=== PATIENT | male | born 1940 | race Caucasian/White ===

== ENCOUNTER 2017-08-14 10:36 | Inpatient (IN) | payer MEDICARE ==
[~2017-08-14] VITALS: Ht 175.3 cm; Wt 72.6 kg
[~2017-08-14 10:36] MED LIST: ALBU18HF7 IH; ALPR0.255 PO; ALPR0.5T PO; ASPI-1197 PO; BENZ-39 PO; BUDE10.2 IH; ISOS60TA4 PO; LEVO500T2 PO; MAGN250T10 PO; OMEP20TA2 PO; PRED20TA3 PO; TAMS0.4C32 PO; VIT1CAPS47 PO
[2017-08-14 11:06] LABS: BASOPHILS % (AUTO) 0.6 % (0.0-5.0); EOSINOPHILS % (AUTO) 0.1 % (0.0-8.0); HEMATOCRIT 45.4 % (42-54); LYMPHOCYTES % (AUTO) 3.3 % (21.0-51.0); MEAN CORPUSCULAR HGB CONC 33.2 g/dL (32.0-36.0); MEAN CORPUSCULAR VOLUME 93.4 fL (79-99); MONOCYTES % (AUTO) 3.2 % (3.0-13.0); NEUTROPHILS % (AUTO) 92.8 % (40.0-77.0); PLATELET COUNT (AUTO) 321 K/uL (130-400); RED BLOOD CELL COUNT(AUTO) 4.85 MIL/uL (4.50-6.20); RED CELL DISTRIBUTION WIDTH 13.1 % (11.0-15.5)
[2017-08-14 11:19] LABS: CARBON DIOXIDE 29 mmol/L (21-32); CHLORIDE 100 mmol/L (101-111); CREATININE 1.3 mg/dL (0.5-1.5); GLOMERULAR FILTR. RATE CALC 57 mL/min (>60); GLUCOSE,RANDOM 120 mg/dL (70-105); POTASSIUM 4.1 mmol/L (3.5-5.1); SODIUM SERUM 136 mmol/L (136-145); UREA NITROGEN, BLOOD 21 mg/dL (7-18)
[2017-08-14 11:30] LABS: ALANINE AMINOTRANSFERASE 11 U/L (12-78); ALBUMIN 3.6 g/dL (3.5-5.0); ASPARTATE AMINOTRANSFERASE 12 U/L (10-37); BILIRUBIN,TOTAL 1.2 mg/dL (0.2-1.0); CREATINE KINASE MB < 0.5 ng/mL (0.5-3.6); CREATINE KINASE, TOTAL 48 U/L (21-232); TOTAL PROTEIN, SERUM 7.5 g/dL (6.0-8.3)
[2017-08-14 11:44] LABS: B-TYPE NATRIURETIC PEPTIDE 145 pg/mL (0-100)
[2017-08-14 11:50] LABS: INR 1.07 (0.85-1.15); PARTIAL THROMBOPLASTIN TIME 30.6 SEC (26.3-35.5); PROTHROMBIN TIME 11.2 SEC (9.6-11.6)
[2017-08-14] MEDS ORDERED: CEFTRIAXONE SODIUM 1 GM ONE (11:55)
[2017-08-14] MEDS ORDERED: SODIUM CHLORIDE 0.9% 50 ML IV ONE (11:55)
[2017-08-14] MEDS ORDERED: LEVOFLOXACIN 500 MG/D5W 100 ML 0 ML ONE (13:02)
[2017-08-14] MEDS ORDERED: LEVOFLOXACIN 500 MG TABLET ONE (13:03)
[2017-08-14 18:41] VITALS: BP 113/59
[2017-08-14 19:00] VITALS: BP 112/65
[2017-08-14] MEDS: SODIUM CHLORIDE 0.9% 1000ML 1,000 ML IV SCH (19:15)
[2017-08-14] MEDS ORDERED: ACETAMINOPHEN 325 MG TAB PO PRN ×2 (19:15→22:00)
[2017-08-14] MEDS ORDERED: TIOT18CA3 IH (19:47)
[2017-08-14] MEDS ORDERED: BUDE10.2 IH (19:47)
[2017-08-14] MEDS ORDERED: ONDANSETRON HCL 4 MG/2 ML VIAL IV PRN (22:00)
[2017-08-14] MEDS ORDERED: METHYLPREDNISOLONE SOD SUCC 125MG/2ML VIAL IV SCH (22:00)
[2017-08-14] MEDS ORDERED: HYDRALAZINE HCL 20 MG/ML VIAL IV PRN (22:00)
[2017-08-14] MEDS ORDERED: IPRATROPIUM/ALBUTEROL SULFATE 3 ML SOLUTION IH SCH (22:00)
[2017-08-14] MEDS: ACETAMINOPHEN-CODEINE 300/30MG TAB PO PRN (23:53)
[2017-08-14] MEDS: AZITHROMYCIN 500MG+NS 250ML 250 ML IV SCH (23:53)
[2017-08-15] VITALS (8 sets, daily range): BP systolic 97–137; BP diastolic 60–72
[2017-08-15] MEDS: IPRATROPIUM 0.5 MG/2.5 ML INH IH SCH ×3 (01:48→10:00)
[2017-08-15 04:38] LABS: BASOPHILS % (AUTO) 0.1 % (0.0-5.0); EOSINOPHILS % (AUTO) 0.1 % (0.0-8.0); MEAN CORPUSCULAR HEMOGLOBIN 31.8 pg (27.0-33.0); MEAN CORPUSCULAR HGB CONC 33.9 g/dL (32.0-36.0); MEAN CORPUSCULAR VOLUME 93.7 fL (79-99); MONOCYTES % (AUTO) 1.2 % (3.0-13.0); NEUTROPHILS % (AUTO) 94.6 % (40.0-77.0); PLATELET COUNT (AUTO) 260 K/uL (130-400); RED BLOOD CELL COUNT(AUTO) 4.27 MIL/uL (4.50-6.20); RED CELL DISTRIBUTION WIDTH 13.6 % (11.0-15.5); WHITE BLOOD COUNT (AUTO) 13.8 K/uL (4.8-10.8)
[2017-08-15 04:41] LABS: CREATININE 1.3 mg/dL (0.5-1.5); POTASSIUM 4.3 mmol/L (3.5-5.1)
[2017-08-15] MEDS: SODIUM CHLORIDE 0.9% 1000ML 1,000 ML IV SCH (05:04)
[2017-08-15] MEDS ORDERED: LEVOFLOXACIN 500 MG/D5W 100 ML 100 ML IV SCH (09:00)
[2017-08-15] MEDS ORDERED: CEFTRIAXONE 1GM/D5W 50ML 50 ML IV SCH (09:00)
[2017-08-15] MEDS ORDERED: SUB TO ALBUTEROL 2.5MG/3ML NEBULES PER P&T IH SCH (09:30)
[2017-08-15] MEDS: PANTOPRAZOLE SODIUM 40 MG TABLET.DR PO SCH (10:16)
[2017-08-15] MEDS: BENZONATATE 100 MG CAPSULE PO SCH ×3 (10:16→20:55)
[2017-08-15] MEDS: ENOXAPARIN SODIUM 40 MG/0.4 ML SYRINGE SQ SCH (10:18)
[2017-08-15] MEDS ORDERED: IPRATROPIUM 0.5 MG/2.5 ML INH IH SCH (12:00)
[2017-08-15] MEDS: METHYLPREDNISOLONE SOD SUCC 40MG/ML 1ML IVP SCH ×2 (14:21→22:42)
[2017-08-15] MEDS ORDERED: DIGOXIN 250 MCG TABLET PO SCH (14:30)
[2017-08-15] MEDS: IPRATROPIUM/ALBUTEROL SULFATE 3 ML SOLUTION IH SCH (19:22)
[2017-08-15] MEDS: APIXABAN 5 MG TABLET PO SCH (20:55)
[2017-08-15] MEDS: CEFTRIAXONE SODIUM 1 GM IVP SCH (20:55)
[2017-08-15] MEDS: AZITHROMYCIN 500MG+NS 250ML 250 ML IV SCH (22:42)
[2017-08-16] MEDS: IPRATROPIUM/ALBUTEROL SULFATE 3 ML SOLUTION IH SCH ×5 (00:07→23:51)
[2017-08-16 04:00] VITALS: BP 134/77
[2017-08-16] MEDS: ACETAMINOPHEN-CODEINE 300/30MG TAB PO PRN ×2 (05:00→23:23)
[2017-08-16] MEDS: METHYLPREDNISOLONE SOD SUCC 40MG/ML 1ML IVP SCH ×3 (05:47→21:52)
[2017-08-16 08:08] VITALS: BP 143/77
[2017-08-16] MEDS: APIXABAN 5 MG TABLET PO SCH ×2 (08:13→20:01)
[2017-08-16] MEDS: ENOXAPARIN SODIUM 40 MG/0.4 ML SYRINGE SQ SCH (08:13)
[2017-08-16] MEDS: PANTOPRAZOLE SODIUM 40 MG TABLET.DR PO SCH (08:13)
[2017-08-16] MEDS: BENZONATATE 100 MG CAPSULE PO SCH ×3 (08:14→20:01)
[2017-08-16] MEDS: CEFTRIAXONE SODIUM 1 GM IVP SCH ×2 (08:15→20:00)
[2017-08-16] MEDS ORDERED: LACTULOSE 20 GM/30 ML UDCUP PO PRN (08:45)
[2017-08-16 11:21] VITALS: BP 142/78
[2017-08-16] MEDS ORDERED: DIGOXIN 125 MCG TABLET PO SCH (16:00)
[2017-08-16 16:08] VITALS: BP 140/78
[2017-08-16] MEDS ORDERED: BISACODYL 5 MG TABLET.DR PO PRN (18:00)
[2017-08-16 20:00] VITALS: BP 137/76
[2017-08-16] MEDS: AZITHROMYCIN 500MG+NS 250ML 250 ML IV SCH (21:52)
[2017-08-17] VITALS: BP 148/77
[2017-08-17 04:00] VITALS: BP 131/74
[2017-08-17 05:39] LABS: HEMATOCRIT 36.7 % (42-54); MEAN CORPUSCULAR HEMOGLOBIN 31.1 pg (27.0-33.0); MEAN CORPUSCULAR HGB CONC 33.4 g/dL (32.0-36.0); MEAN CORPUSCULAR VOLUME 93.1 fL (79-99); PLATELET COUNT (AUTO) 323 K/uL (130-400); RED BLOOD CELL COUNT(AUTO) 3.94 MIL/uL (4.50-6.20); WHITE BLOOD COUNT (AUTO) 11.2 K/uL (4.8-10.8)
[2017-08-17 05:53] LABS: POTASSIUM 3.9 mmol/L (3.5-5.1)
[2017-08-17] MEDS: METHYLPREDNISOLONE SOD SUCC 40MG/ML 1ML IVP SCH ×2 (05:58→14:55)
[2017-08-17 07:00] VITALS: BP 145/79
[2017-08-17] MEDS: IPRATROPIUM/ALBUTEROL SULFATE 3 ML SOLUTION IH SCH ×2 (07:12→11:23)
[2017-08-17] MEDS: BENZONATATE 100 MG CAPSULE PO SCH ×2 (09:14→14:55)
[2017-08-17] MEDS: CEFTRIAXONE SODIUM 1 GM IVP SCH (09:14)
[2017-08-17] MEDS: APIXABAN 5 MG TABLET PO SCH (09:15)
[2017-08-17] MEDS: PANTOPRAZOLE SODIUM 40 MG TABLET.DR PO SCH (09:15)
[2017-08-17 11:00] VITALS: BP 144/84
== END 2017-08-17 16:40 | disposition home or self-care (01) | DRG 871 ==
LOC: EDH 10:36 → EDHIP 12:14 → 3DH 18:04
PROVIDERS: ADMIT Family Medicine; ATTEND Family Medicine
DX: A41.9 Sepsis, unspecified organism (principal); J18.9 Pneumonia, unspecified organism; J44.0 Chronic obstructive pulmonary disease with (acute) lower respiratory infection; J44.1 Chronic obstructive pulmonary disease with (acute) exacerbation; I48.0 Paroxysmal atrial fibrillation; F41.9 Anxiety disorder, unspecified; N40.0 Benign prostatic hyperplasia without lower urinary tract symptoms; K21.9 Gastro-esophageal reflux disease without esophagitis; M51.9 Unspecified thoracic, thoracolumbar and lumbosacral intervertebral disc disorder; I73.9 Peripheral vascular disease, unspecified; F17.200 Nicotine dependence, unspecified, uncomplicated; Z96.643 Presence of artificial hip joint, bilateral
CPT/HCPCS: 36415; 71045; 71046; 80048; 80053; 82550; 82553; 83605; 83880; 84484; 85025; 85027; 85610; 85730; 87040; 87804; 93005; 94640; 94664; 99291; A4218; J0456; J0696; J1650; J1956; J2920; J2930; J7030

== ENCOUNTER 2018-07-17 07:00 | Emergency (ER) | payer MEDICARE ==
[~2018-07-17 07:00] MED LIST changes: -ALPR0.255 PO; -ASPI-1197 PO; -LEVO500T2 PO; -MAGN250T10 PO; -PRED20TA3 PO; +TIOT18CA3 IH; -VIT1CAPS47 PO
[2018-07-17 08:19] LABS: BASOPHILS % (AUTO) 0.7 % (0.0-5.0); HEMATOCRIT 41.7 % (42-54); LYMPHOCYTES % (AUTO) 22.1 % (21.0-51.0); MEAN CORPUSCULAR HEMOGLOBIN 32.6 pg (27.0-33.0); MEAN CORPUSCULAR HGB CONC 33.8 g/dL (32.0-36.0); MEAN CORPUSCULAR VOLUME 96.3 fL (79-99); NEUTROPHILS % (AUTO) 69.2 % (40.0-77.0); PLATELET COUNT (AUTO) 338 K/uL (130-400); RED BLOOD CELL COUNT(AUTO) 4.33 MIL/uL (4.50-6.20); RED CELL DISTRIBUTION WIDTH 13.6 % (11.0-15.5); WHITE BLOOD COUNT (AUTO) 11.2 K/uL (4.8-10.8)
[2018-07-17 08:23] LABS: CARBON DIOXIDE 28 mmol/L (21-32); CHLORIDE 102 mmol/L (101-111); CREATININE 1.1 mg/dL (0.5-1.5); GLOMERULAR FILTR. RATE CALC 69 mL/min (>60); GLUCOSE,RANDOM 88 mg/dL (70-105); POTASSIUM 4.1 mmol/L (3.5-5.1); SODIUM SERUM 138 mmol/L (136-145); UREA NITROGEN, BLOOD 21 mg/dL (7-18)
[2018-07-17 08:36] LABS: INR 1.01 (0.85-1.15); PARTIAL THROMBOPLASTIN TIME 26.8 SEC (26.3-35.5); PROTHROMBIN TIME 10.6 SEC (9.6-11.6)
[2018-07-17 08:36] LABS: ALANINE AMINOTRANSFERASE 26 U/L (12-78); ALBUMIN 3.3 g/dL (3.5-5.0); ASPARTATE AMINOTRANSFERASE 20 U/L (10-37); BILIRUBIN,TOTAL 0.4 mg/dL (0.2-1.0); CREATINE KINASE, TOTAL 55 U/L (21-232); MYOGLOBIN 54 ng/mL (10-92); TOTAL PROTEIN, SERUM 6.4 g/dL (6.0-8.3); TROPONIN I < 0.04 ng/mL (0.00-0.06)
== END 2018-07-17 09:28 | disposition home or self-care (01) ==
LOC: EDH 07:00
DX: J20.9 Acute bronchitis, unspecified (principal); F41.9 Anxiety disorder, unspecified; J44.9 Chronic obstructive pulmonary disease, unspecified; Z72.0 Tobacco use
CPT/HCPCS: 36415; 71250; 80053; 82550; 83605; 83874; 84484; 85025; 85610; 85730; 87040; 93005

== ENCOUNTER 2018-09-20 16:06 | Emergency (ER) | payer MEDICARE ==
[2018-09-20 16:26] LABS: BASOPHILS % (AUTO) 1.1 % (0.0-5.0); EOSINOPHILS % (AUTO) 3.6 % (0.0-8.0); HEMATOCRIT 42.7 % (42-54); LYMPHOCYTES % (AUTO) 17.7 % (21.0-51.0); MEAN CORPUSCULAR HEMOGLOBIN 31.1 pg (27.0-33.0); MEAN CORPUSCULAR HGB CONC 33.1 g/dL (32.0-36.0); MONOCYTES % (AUTO) 8.8 % (3.0-13.0); NEUTROPHILS % (AUTO) 68.8 % (40.0-77.0); NUCLEATED RED BLOOD CELLS 0.1 % (0.0-0.19); PLATELET COUNT (AUTO) 344 K/uL (130-400); RED BLOOD CELL COUNT(AUTO) 4.55 MIL/uL (4.50-6.20); RED CELL DISTRIBUTION WIDTH 13.4 % (11.0-15.5); WHITE BLOOD COUNT (AUTO) 7.2 K/uL (4.8-10.8)
[2018-09-20] MEDS ORDERED: ONDANSETRON HCL 4 MG/2 ML VIAL ONE (16:31)
[2018-09-20 16:38] LABS: INR 1.01 (0.85-1.15); PARTIAL THROMBOPLASTIN TIME 30.8 SEC (26.3-35.5); PROTHROMBIN TIME 10.6 SEC (9.6-11.6)
[2018-09-20 16:41] LABS: ALBUMIN 3.3 g/dL (3.5-5.0); BILIRUBIN,TOTAL 0.5 mg/dL (0.2-1.0); POTASSIUM 3.9 mmol/L (3.5-5.1); TOTAL PROTEIN, SERUM 6.3 g/dL (6.0-8.3)
== END 2018-09-20 20:30 | disposition home or self-care (01) ==
LOC: EDH 16:06
DX: K80.50 Calculus of bile duct without cholangitis or cholecystitis without obstruction (principal); K80.20 Calculus of gallbladder without cholecystitis without obstruction; J44.9 Chronic obstructive pulmonary disease, unspecified; Z72.0 Tobacco use
CPT/HCPCS: 36415; 71045; 76705; 80053; 83690; 84484 ×2; 85025; 85610; 85730; 93005; 96374; 99284; J2405

== ENCOUNTER 2021-08-21 00:53 | Observation (INO) | payer MEDICARE ==
[~2021-08-21] VITALS: Ht 172.7 cm; Wt 65.8 kg
[~2021-08-21 00:53] MED LIST changes: -ISOS60TA4 PO; +ISOS60TA77 PO
[2021-08-21] MEDS ORDERED: ONDANSETRON 4MG INJ ONE (01:54)
[2021-08-21] MEDS ORDERED: MORPHINE 4 MG SYG ONE (01:54)
[2021-08-21 01:58] LABS: BASOPHILS % (AUTO) 0.5 % (0.0-5.0); EOSINOPHILS % (AUTO) 0.7 % (0.0-8.0); HEMATOCRIT 41.5 % (42-54); LYMPHOCYTES % (AUTO) 10.3 % (21.0-51.0); MEAN CORPUSCULAR HEMOGLOBIN 29.4 pg (27.0-33.0); MEAN CORPUSCULAR HGB CONC 32.5 g/dL (32.0-36.0); MEAN CORPUSCULAR VOLUME 90.4 fL (79-99); MONOCYTES % (AUTO) 6.7 % (3.0-13.0); NEUTROPHILS % (AUTO) 81.4 % (40.0-77.0); PLATELET COUNT (AUTO) 283 K/uL (130-400); RED BLOOD CELL COUNT(AUTO) 4.59 MIL/uL (4.50-6.20); RED CELL DISTRIBUTION WIDTH 14.2 % (11.0-15.5); WHITE BLOOD COUNT (AUTO) 10.8 K/uL (4.8-10.8)
[2021-08-21] MEDS ORDERED: MORPHINE 4 MG SYG IV ONE (02:00)
[2021-08-21] MEDS ORDERED: ONDANSETRON 4MG INJ IVP ONE (02:00)
[2021-08-21 02:07] LABS: CREATININE 1.2 mg/dL (0.5-1.5); POTASSIUM 4.6 mmol/L (3.5-5.1)
[2021-08-21 02:12] LABS: ALBUMIN 3.9 g/dL (3.5-5.0); BILIRUBIN,TOTAL 0.4 mg/dL (0.2-1.0); TOTAL PROTEIN, SERUM 7.5 g/dL (6.0-8.3)
[2021-08-21] MEDS ORDERED: MORPHINE 2 MG SYG ONE (06:26)
[2021-08-21] MEDS ORDERED: MORPHINE 2 MG SYG IVP ONE (06:30)
[2021-08-21] MEDS ORDERED: ACETAMINOPHEN 325 MG TAB PO PRN ×2 (07:00)
[2021-08-21] MEDS ORDERED: ONDANSETRON 4MG INJ IV PRN (07:00)
[2021-08-21] MEDS ORDERED: HYDRALAZINE 20MG/ML VIAL IV PRN (07:00)
[2021-08-21 07:11] LABS: APPEARANCE,URINE Clear (CLEAR); BILIRUBIN,URINE Negative (NEGATIVE); COLOR,URINE Yellow (YELLOW); GLUCOSE, URINE (UA) Negative (NEGATIVE); KETONES,URINE 15 mg/dL (NEGATIVE); LEUKOCYTE ESTERASE ,URINE Moderate (NEGATIVE); NITRATE,URINE Positive (NEGATIVE); OCCULT BLOOD,URINE Large (NEGATIVE); PROTEIN,URINE Trace mg/dL (NEGATIVE); UROBILINOGEN,URINE 0.2 mg/dL (0.2-1.0)
[2021-08-21 07:17] LABS: AMPHET/METH SCREEN,URINE NEGATIVE (NEGATIVE); BARBITURATE SCREEN, URINE NEGATIVE (NEGATIVE); BENZODIAZEPINES SCREEN,URINE POSITIVE (NEGATIVE); CANNABINOID SCREEN,URINE NEGATIVE (NEGATIVE); COCAINE SCREEN,URINE NEGATIVE (NEGATIVE); OPIATE SCREEN,URINE POSITIVE (NEGATIVE); PHENCYCLIDINE SCREEN,URINE NEGATIVE (NEGATIVE)
[2021-08-21 07:36] LABS: SQUAMOUS EPITHELIAL CELL,UR Rare /HPF (0-2)
[2021-08-21 07:38] LABS: RBC,URINE 51-100 /HPF (0-1)
[2021-08-21 07:39] LABS: BACTERIA,URINE Moderate /HPF (None Seen)
[2021-08-21 07:40] LABS: INR 0.97 (0.85-1.15); PROTHROMBIN TIME 10.6 SEC (9.6-11.6)
[2021-08-21 07:42] LABS: PARTIAL THROMBOPLASTIN TIME 29.4 SEC (26.3-35.5)
[2021-08-21] MEDS: TRAMADOL HCL 50 MG TABLET PO PRN ×3 (08:19→10:58)
[2021-08-21] MEDS: FAMOTIDINE 20MG VIAL IV SCH ×2 (09:22→10:59)
[2021-08-21] MEDS: CEFTRIAXONE 1G VIAL IVP SCH (13:18)
[2021-08-21] MEDS: KETOROLAC 15MG/ML VIAL (15MG/ML) IV PRN (16:08)
[2021-08-21] MEDS ORDERED: ALPRAZOLAM 0.25 MG TABLET ONE (17:57)
[2021-08-21] MEDS ORDERED: IPRATROPIUM/ALBUTEROL SULFATE 3 ML SOLUTION IH SCH (18:00)
[2021-08-21] MEDS: BUDESONIDE 0.5 MG/2 ML INH IH SCH (18:00)
[2021-08-21] MEDS: ALPRAZOLAM 0.5 MG TABLET PO PRN (18:01)
[2021-08-21] MEDS: IPRATROPIUM/ALBUTEROL SULFATE 3 ML SOLUTION IH SCH (19:18)
[2021-08-22] MEDS: IPRATROPIUM/ALBUTEROL SULFATE 3 ML SOLUTION IH SCH ×5 (00:37→23:59)
[2021-08-22] MEDS: TRAMADOL HCL 50 MG TABLET PO PRN ×3 (04:41→18:11)
[2021-08-22] MEDS: BUDESONIDE 0.5 MG/2 ML INH IH SCH ×2 (06:21→19:16)
[2021-08-22 07:02] LABS: HEMATOCRIT 41.6 % (42-54); MEAN CORPUSCULAR HEMOGLOBIN 29.7 pg (27.0-33.0); MEAN CORPUSCULAR HGB CONC 32.2 g/dL (32.0-36.0); MEAN CORPUSCULAR VOLUME 92.2 fL (79-99); RED BLOOD CELL COUNT(AUTO) 4.51 MIL/uL (4.50-6.20); RED CELL DISTRIBUTION WIDTH 14.7 % (11.0-15.5); WHITE BLOOD COUNT (AUTO) 8.6 K/uL (4.8-10.8)
[2021-08-22 07:22] LABS: CREATININE 1.1 mg/dL (0.5-1.5); POTASSIUM 4.7 mmol/L (3.5-5.1)
[2021-08-22] MEDS: PANTOPRAZOLE 40 MG TAB DR PO SCH (08:39)
[2021-08-22] MEDS ORDERED: POLYETHYLENE GLYCOL 3350 17 GM POWD.PACK PO ONE (12:30)
[2021-08-22] MEDS: CEFTRIAXONE 1G VIAL IVP SCH (13:14)
[2021-08-22] MEDS: TAMSULOSIN HCL 0.4 MG CAP.ER.24H PO SCH (13:14)
[2021-08-22] MEDS ORDERED: salbutamol IH (14:38)
[2021-08-22 14:57] VITALS: BP 137/70
[2021-08-22 20:00] VITALS: BP 111/66
[2021-08-23] VITALS (10 sets, daily range): BP systolic 116–149; BP diastolic 61–78
[2021-08-23] MEDS: ALPRAZOLAM 0.5 MG TABLET PO PRN ×2 (00:02→14:17)
[2021-08-23] MEDS: KETOROLAC 15MG/ML VIAL (15MG/ML) IV PRN (00:03)
[2021-08-23] MEDS ORDERED: POLYETHYLENE GLYCOL 3350 17 GM POWD.PACK ONE (05:25)
[2021-08-23] MEDS: POLYETHYLENE GLYCOL 3350 17 GM POWD.PACK PO SCH ×2 (05:29→09:50)
[2021-08-23 05:34] LABS: BASOPHILS % (AUTO) 0.6 % (0.0-5.0); EOSINOPHILS % (AUTO) 3.5 % (0.0-8.0); HEMATOCRIT 36.3 % (42-54); LYMPHOCYTES % (AUTO) 20.7 % (21.0-51.0); MEAN CORPUSCULAR HGB CONC 31.7 g/dL (32.0-36.0); MEAN CORPUSCULAR VOLUME 91.4 fL (79-99); MONOCYTES % (AUTO) 12.9 % (3.0-13.0); PLATELET COUNT (AUTO) 248 K/uL (130-400); RED BLOOD CELL COUNT(AUTO) 3.97 MIL/uL (4.50-6.20); RED CELL DISTRIBUTION WIDTH 14.4 % (11.0-15.5); WHITE BLOOD COUNT (AUTO) 7.2 K/uL (4.8-10.8)
[2021-08-23 05:59] LABS: ALBUMIN 3.3 g/dL (3.5-5.0); BILIRUBIN,TOTAL 0.6 mg/dL (0.2-1.0); CREATININE 1.3 mg/dL (0.5-1.5); POTASSIUM 3.9 mmol/L (3.5-5.1); TOTAL PROTEIN, SERUM 6.8 g/dL (6.0-8.3)
[2021-08-23] MEDS: IPRATROPIUM/ALBUTEROL SULFATE 3 ML SOLUTION IH SCH ×4 (07:02→23:23)
[2021-08-23] MEDS: BUDESONIDE 0.5 MG/2 ML INH IH SCH ×2 (07:02→18:09)
[2021-08-23] MEDS: PANTOPRAZOLE 40 MG TAB DR PO SCH (09:50)
[2021-08-23] MEDS: TAMSULOSIN HCL 0.4 MG CAP.ER.24H PO SCH (12:47)
[2021-08-23] MEDS: LACTULOSE 20 GM/30 ML UDCUP PO PRN ×2 (12:47→19:41)
[2021-08-23] MEDS: CEFTRIAXONE 1G VIAL IVP SCH (12:47)
[2021-08-23] MEDS: MORPHINE 2 MG SYG IVP PRN ×2 (12:54→19:38)
[2021-08-23] MEDS ORDERED: MORPHINE 2 MG SYG IVP SCH (14:00)
[2021-08-24] VITALS: BP 134/68
[2021-08-24] MEDS: MORPHINE 2 MG SYG IVP PRN ×3 (00:15→09:24)
[2021-08-24] MEDS: TRAMADOL HCL 50 MG TABLET PO PRN (02:50)
[2021-08-24 03:42] LABS: BASOPHILS % (AUTO) 0.7 % (0.0-5.0); EOSINOPHILS % (AUTO) 4.4 % (0.0-8.0); HEMATOCRIT 40.3 % (42-54); LYMPHOCYTES % (AUTO) 15.4 % (21.0-51.0); MEAN CORPUSCULAR HEMOGLOBIN 29.4 pg (27.0-33.0); MEAN CORPUSCULAR HGB CONC 31.8 g/dL (32.0-36.0); MEAN CORPUSCULAR VOLUME 92.6 fL (79-99); MONOCYTES % (AUTO) 9.5 % (3.0-13.0); NEUTROPHILS % (AUTO) 69.6 % (40.0-77.0); PLATELET COUNT (AUTO) 307 K/uL (130-400); RED BLOOD CELL COUNT(AUTO) 4.35 MIL/uL (4.50-6.20); RED CELL DISTRIBUTION WIDTH 14.5 % (11.0-15.5); WHITE BLOOD COUNT (AUTO) 8.1 K/uL (4.8-10.8)
[2021-08-24 03:51] LABS: CREATININE 1.1 mg/dL (0.5-1.5); POTASSIUM 4.8 mmol/L (3.5-5.1)
[2021-08-24 04:00] VITALS: BP 126/79
[2021-08-24] MEDS: BUDESONIDE 0.5 MG/2 ML INH IH SCH (06:00)
[2021-08-24] MEDS: IPRATROPIUM/ALBUTEROL SULFATE 3 ML SOLUTION IH SCH ×2 (07:17→11:03)
[2021-08-24 08:32] VITALS: BP 114/73
[2021-08-24] MEDS: POLYETHYLENE GLYCOL 3350 17 GM POWD.PACK PO SCH (09:28)
[2021-08-24] MEDS: PANTOPRAZOLE 40 MG TAB DR PO SCH (09:28)
[2021-08-24] MEDS ORDERED: MEROPENEM 500 MG VIAL IVP SCH ×2 (09:30→17:00)
[2021-08-24] MEDS ORDERED: SULF1TAB42 PO (09:33)
[2021-08-24] MEDS ORDERED: ACET1TAB25 PO (09:34)
[2021-08-24 11:46] VITALS: BP 106/71
== END 2021-08-24 12:30 | disposition home or self-care (01) ==
LOC: EDH 00:53 → EDHIP 06:42 → 4AH 08-22 14:28
PROVIDERS: ADMIT Internal Medicine; ATTEND Internal Medicine
DX: R55 Syncope and collapse (principal); Z20.822 Contact with and (suspected) exposure to COVID-19; R07.89 Other chest pain; J44.9 Chronic obstructive pulmonary disease, unspecified; N39.0 Urinary tract infection, site not specified; B96.20 Unspecified Escherichia coli [E. coli] as the cause of diseases classified elsewhere; K59.00 Constipation, unspecified; F17.210 Nicotine dependence, cigarettes, uncomplicated; Z86.16 Personal history of COVID-19; Z90.49 Acquired absence of other specified parts of digestive tract; Z79.899 Other long term (current) drug therapy; Z98.890 Other specified postprocedural states; W22.8XXA Striking against or struck by other objects, initial encounter; Y93.89 Activity, other specified; Y92.89 Other specified places as the place of occurrence of the external cause; Y99.8 Other external cause status
CPT/HCPCS: 36415; 70450; 71100; 71250; 74176; 80048; 80053; 80305; 81001; 83880; 84484; 85025; 85027; 85378; 85610; 85730; 87077; 87088; 87186; 87635; 93005; 93306; 93880; 93970; 94640; 94664; 96374; 96375; 96376; 97039; C9803; G0378; J0696; J1885; J2185; J2270; J2405; J3490

== ENCOUNTER 2021-08-31 06:06 | Inpatient (IN) | payer MEDICARE ==
[~2021-08-31] VITALS: Ht 172.7 cm; Wt 67.5 kg
[2021-08-31] VITALS (17 sets, daily range): BP systolic 98–138; BP diastolic 51–74
[~2021-08-31 06:06] MED LIST changes: -ALBU18HF7 IH; -BENZ-39 PO; -ISOS60TA77 PO; +SULF1TAB42 PO; +salbutamol IH
[2021-08-31 06:48] LABS: BASOPHILS % (AUTO) 0.7 % (0.0-5.0); EOSINOPHILS % (AUTO) 0.5 % (0.0-8.0); HEMATOCRIT 38.6 % (42-54); LYMPHOCYTES % (AUTO) 9.8 % (21.0-51.0); MEAN CORPUSCULAR HGB CONC 31.9 g/dL (32.0-36.0); MONOCYTES % (AUTO) 8.7 % (3.0-13.0); NEUTROPHILS % (AUTO) 79.8 % (40.0-77.0); PLATELET COUNT (AUTO) 325 K/uL (130-400); RED BLOOD CELL COUNT(AUTO) 4.24 MIL/uL (4.50-6.20); RED CELL DISTRIBUTION WIDTH 13.8 % (11.0-15.5); WHITE BLOOD COUNT (AUTO) 8.7 K/uL (4.8-10.8)
[2021-08-31] MEDS ORDERED: ACETAMINOPHEN 325 MG TAB PO ONE (07:00)
[2021-08-31 07:05] LABS: ALBUMIN 3.6 g/dL (3.5-5.0); BILIRUBIN,TOTAL 0.4 mg/dL (0.2-1.0); CREATININE 1.5 mg/dL (0.5-1.5); POTASSIUM 4.1 mmol/L (3.5-5.1); TOTAL PROTEIN, SERUM 7.3 g/dL (6.0-8.3)
[2021-08-31] MEDS ORDERED: 0.9% NACL 500ML IV.SOLN 500 ML IV ONE (07:30)
[2021-08-31] MEDS ORDERED: ONDANSETRON 4MG INJ IVP ONE (07:30)
[2021-08-31] MEDS ORDERED: MORPHINE 2 MG SYG IVP ONE (07:30)
[2021-08-31] MEDS ORDERED: IOHEXOL 350 MG/ML 100ML INFUS..BTL IV ONE (07:59)
[2021-08-31] MEDS ORDERED: IOHEXOL-350 50ML VIAL IV ONE (07:59)
[2021-08-31] MEDS ORDERED: MORPHINE 2 MG SYG IVP PRN (10:00)
[2021-08-31] MEDS: CEFTRIAXONE 1G VIAL IVP SCH (10:36)
[2021-08-31] MEDS: ALPRAZOLAM 1 MG TAB PO SCH (11:36)
[2021-08-31] MEDS: MORPHINE 2 MG SYG IVP PRN (13:22)
[2021-08-31] MEDS: IPRATROPIUM/ALBUTEROL SULFATE 3 ML SOLUTION IH PRN ×2 (13:48→23:01)
[2021-08-31 16:05] LABS: APPEARANCE,URINE Clear (CLEAR); BILIRUBIN,URINE Negative (NEGATIVE); COLOR,URINE Yellow (YELLOW); GLUCOSE, URINE (UA) Negative (NEGATIVE); KETONES,URINE Negative (NEGATIVE); LEUKOCYTE ESTERASE ,URINE Negative (NEGATIVE); NITRATE,URINE Negative (NEGATIVE); OCCULT BLOOD,URINE Negative (NEGATIVE); PH,URINE 6.5 (5.0-8.0); PROTEIN,URINE Negative (NEGATIVE)
[2021-08-31 16:48] LABS: BACTERIA,URINE Rare /HPF (None Seen); RBC,URINE 0-1 /HPF (0-1); SQUAMOUS EPITHELIAL CELL,UR Rare /HPF (0-2); WBC,URINE 0-1 /HPF (0-1)
[2021-08-31] MEDS ORDERED: CEFAZOLIN SODIUM 1 GM VIAL IVP PRN (19:30)
[2021-08-31] MEDS ORDERED: CEFAZOLIN SODIUM 1 GM VIAL ONE (19:33)
[2021-08-31] MEDS ORDERED: ROCURONIUM 10MG/1ML SYR 10 MG/ML ML ONE (20:53)
[2021-08-31] MEDS ORDERED: SUCCINYLCHOLINE CHLORIDE 20 MG/ML 10 ML VIAL ONE (20:53)
[2021-08-31] MEDS ORDERED: LIDOCAINE PF 100MG/5ML (2%) SYRINGE 5ML ONE (20:53)
[2021-08-31] MEDS ORDERED: MIDAZOLAM HCL 1 MG/ML 2ML VIAL ONE (20:53)
[2021-08-31] MEDS ORDERED: PROPOFOL 10 MG/ML 20ML VIAL IV ONE (20:53)
[2021-08-31] MEDS ORDERED: FENTANYL CITRATE PF 50 MCG/1 ML 2ML VIAL ONE (20:54)
[2021-08-31] MEDS ORDERED: LACTATED RINGERS 1000ML 1,000 ML IV ONE (20:57)
[2021-08-31] MEDS ORDERED: EPHEDRINE SULFATE 50 MG/ML AMPULE ONE (21:48)
[2021-08-31] MEDS ORDERED: ROPIVACAINE 0.5% 5MG/ML 30ML IJ ONE (22:06)
[2021-08-31] MEDS ORDERED: GLYCOPYRROLATE 1 MG/5 ML SYRINGE ONE (22:07)
[2021-08-31] MEDS ORDERED: NEOSTIGMINE 5MG/5ML SYR IV ONE (22:07)
[2021-08-31] MEDS ORDERED: DEXAMETHASONE SOD PHOSPHATE 10MG/ML 1ML VIAL ONE (22:08)
[2021-08-31] MEDS ORDERED: HYDROCODONE/ACETAMINOPHEN 7.5/325 MG 15 ML UDCUP PO PRN (23:45)
[2021-09-01] VITALS (10 sets, daily range): BP systolic 104–135; BP diastolic 54–78
[2021-09-01] MEDS ORDERED: HYDROCODONE/ACETAMINOPHEN 5/325 MG TAB PO PRN (06:30)
[2021-09-01 07:47] LABS: BASOPHILS % (AUTO) 0.1 % (0.0-5.0); EOSINOPHILS % (AUTO) 0.1 % (0.0-8.0); HEMATOCRIT 37.6 % (42-54); LYMPHOCYTES % (AUTO) 6.2 % (21.0-51.0); MEAN CORPUSCULAR HEMOGLOBIN 28.9 pg (27.0-33.0); MEAN CORPUSCULAR HGB CONC 31.6 g/dL (32.0-36.0); MEAN CORPUSCULAR VOLUME 91.3 fL (79-99); MONOCYTES % (AUTO) 1.9 % (3.0-13.0); NEUTROPHILS % (AUTO) 91.3 % (40.0-77.0); PLATELET COUNT (AUTO) 289 K/uL (130-400); RED BLOOD CELL COUNT(AUTO) 4.12 MIL/uL (4.50-6.20); RED CELL DISTRIBUTION WIDTH 13.6 % (11.0-15.5); WHITE BLOOD COUNT (AUTO) 6.8 K/uL (4.8-10.8)
[2021-09-01 08:00] LABS: CREATININE 1.4 mg/dL (0.5-1.5); POTASSIUM 4.5 mmol/L (3.5-5.1)
[2021-09-01] MEDS: CEFTRIAXONE 1G VIAL IVP SCH (10:30)
[2021-09-01] MEDS: ALPRAZOLAM 1 MG TAB PO SCH (11:30)
[2021-09-01] MEDS ORDERED: KETOROLAC 15MG/ML VIAL (15MG/ML) IV PRN (12:30)
[2021-09-01] MEDS ORDERED: ONDANSETRON 4MG INJ IV PRN (12:30)
[2021-09-01] MEDS ORDERED: ACETAMINOPHEN 325 MG TAB PO PRN ×2 (12:30)
[2021-09-01] MEDS: BUDESONIDE 0.5 MG/2 ML INH IH SCH (18:13)
[2021-09-01] MEDS: FAMOTIDINE 20MG VIAL IV SCH (20:33)
[2021-09-02] VITALS: BP 119/71
[2021-09-02 04:00] VITALS: BP 123/74
[2021-09-02] MEDS: ALPRAZOLAM 1 MG TAB PO SCH (04:14)
[2021-09-02] MEDS: BUDESONIDE 0.5 MG/2 ML INH IH SCH (07:13)
[2021-09-02 07:30] VITALS: BP 114/65
[2021-09-02 07:57] LABS: HEMATOCRIT 32.1 % (42-54); MEAN CORPUSCULAR HEMOGLOBIN 29.3 pg (27.0-33.0); MEAN CORPUSCULAR HGB CONC 32.1 g/dL (32.0-36.0); MEAN CORPUSCULAR VOLUME 91.5 fL (79-99); RED BLOOD CELL COUNT(AUTO) 3.51 MIL/uL (4.50-6.20); RED CELL DISTRIBUTION WIDTH 13.8 % (11.0-15.5); WHITE BLOOD COUNT (AUTO) 8.6 K/uL (4.8-10.8)
[2021-09-02] MEDS: FAMOTIDINE 20MG VIAL IV SCH (08:18)
[2021-09-02] MEDS: MORPHINE 2 MG SYG IVP PRN (08:19)
[2021-09-02 09:12] LABS: CREATININE 1.4 mg/dL (0.5-1.5); POTASSIUM 3.6 mmol/L (3.5-5.1)
[2021-09-02 11:00] VITALS: BP 128/65
[2021-09-02] MEDS: CEFTRIAXONE 1G VIAL IVP SCH (11:22)
[2021-09-02] MEDS ORDERED: IPRATROPIUM/ALBUTEROL SULFATE 3 ML SOLUTION IH SCH (12:00)
[2021-09-02 16:00] VITALS: BP 121/67
== END 2021-09-02 17:40 | DRG 481 ==
LOC: EDH 06:06 → EDHIP 09:46 → 3CH 16:50 → 3BH 22:53
PROVIDERS: ADMIT Internal Medicine; ATTEND Internal Medicine
PROC: 0QS706Z Reposition Left Upper Femur with Intramedullary Internal Fixation Device, Open Approach (ICD-10-PCS; principal; 2021-08-31 21:10)
DX: S72.145A Nondisplaced intertrochanteric fracture of left femur, initial encounter for closed fracture (principal); N17.9 Acute kidney failure, unspecified; N39.0 Urinary tract infection, site not specified; N18.2 Chronic kidney disease, stage 2 (mild); F17.210 Nicotine dependence, cigarettes, uncomplicated; I95.1 Orthostatic hypotension; Z20.822 Contact with and (suspected) exposure to COVID-19; J44.9 Chronic obstructive pulmonary disease, unspecified; F41.9 Anxiety disorder, unspecified; E78.5 Hyperlipidemia, unspecified; N40.0 Benign prostatic hyperplasia without lower urinary tract symptoms; I12.9 Hypertensive chronic kidney disease with stage 1 through stage 4 chronic kidney disease, or unspecified chronic kidney disease; I48.0 Paroxysmal atrial fibrillation; W18.30XA Fall on same level, unspecified, initial encounter; Y93.89 Activity, other specified; Y92.098 Other place in other non-institutional residence as the place of occurrence of the external cause; Y99.8 Other external cause status; Z99.81 Dependence on supplemental oxygen; Z91.018 Allergy to other foods; Z91.81 History of falling; Z90.49 Acquired absence of other specified parts of digestive tract; Z87.440 Personal history of urinary (tract) infections; Z91.19 Patient's noncompliance with other medical treatment and regimen; Z83.3 Family history of diabetes mellitus; Z82.3 Family history of stroke; Z82.0 Family history of epilepsy and other diseases of the nervous system; Z82.49 Family history of ischemic heart disease and other diseases of the circulatory system; Z82.5 Family history of asthma and other chronic lower respiratory diseases
CPT/HCPCS: 36415; 70450; 71045; 71275; 73502; 74177; 80048; 80053; 81001; 82550; 83874; 83880; 84484; 85025; 85027; 85378; 86850; 86900; 86901; 87077; 87088; 87186; 87426; 93005; 94640; 94664; 97039; G0378; J0330; J0690; J0696; J1100; J2001; J2250; J2405; J2704; J2710; J2795; J3010; J3490; J7040; J7120; Q9967

== ENCOUNTER 2021-10-02 11:07 | Emergency (ER) | payer MEDICARE ==
[~2021-10-02] VITALS: Ht 157.5 cm; Wt 68.0 kg
[~2021-10-02 11:07] MED LIST changes: -OMEP20TA2 PO; -SULF1TAB42 PO; -salbutamol IH
[2021-10-02 11:08] VITALS: BP 119/60
[2021-10-02] MEDS ORDERED: ACETAMINOPHEN 500 MG TABLET ONE (11:32)
[2021-10-02] MEDS ORDERED: ACET-66 PO (11:46)
[2021-10-02] MEDS ORDERED: ACETAMINOPHEN 500 MG TABLET PO ONE (12:00)
== END 2021-10-02 11:54 | disposition home or self-care (01) ==
LOC: EDH 11:07
DX: S42.022A Displaced fracture of shaft of left clavicle, initial encounter for closed fracture (principal); F41.9 Anxiety disorder, unspecified; J44.9 Chronic obstructive pulmonary disease, unspecified; Z79.51 Long term (current) use of inhaled steroids; Z86.16 Personal history of COVID-19; Z90.49 Acquired absence of other specified parts of digestive tract; W18.39XA Other fall on same level, initial encounter; Y93.01 Activity, walking, marching and hiking; Y92.89 Other specified places as the place of occurrence of the external cause; Y99.8 Other external cause status
CPT/HCPCS: 73030

== ENCOUNTER 2022-09-22 17:39 | Inpatient (IN) | payer MEDICARE ==
[~2022-09-22] VITALS: Ht 172.7 cm; Wt 67.1 kg
[~2022-09-22 17:39] MED LIST changes: +ACET-66 PO
[2022-09-22] MEDS ORDERED: IPRATROPIUM/ALBUTEROL SULFATE 3 ML SOLUTION IH ONE (18:30)
[2022-09-22 18:46] LABS: BASOPHILS % (AUTO) 0.2 % (0.0-5.0); EOSINOPHILS % (AUTO) 0.2 % (0.0-8.0); HEMATOCRIT 41.1 % (42-54); LYMPHOCYTES % (AUTO) 5.1 % (21.0-51.0); MEAN CORPUSCULAR HGB CONC 31.4 g/dL (32.0-36.0); MEAN CORPUSCULAR VOLUME 86.2 fL (79-99); MONOCYTES % (AUTO) 5.7 % (3.0-13.0); NEUTROPHILS % (AUTO) 88.3 % (40.0-77.0); PLATELET COUNT (AUTO) 408 K/uL (130-400); RED BLOOD CELL COUNT(AUTO) 4.77 MIL/uL (4.50-6.20); RED CELL DISTRIBUTION WIDTH 15.1 % (11.0-15.5); WHITE BLOOD COUNT (AUTO) 14.7 K/uL (4.8-10.8)
[2022-09-22 19:00] LABS: INR 0.96 (0.85-1.15); PROTHROMBIN TIME 10.5 SEC (9.6-11.6)
[2022-09-22 19:01] LABS: PARTIAL THROMBOPLASTIN TIME 28.8 SEC (26.3-35.5)
[2022-09-22 19:03] LABS: CREATININE 1.3 mg/dL (0.5-1.5)
[2022-09-22 19:08] LABS: ALBUMIN 3.8 g/dL (3.5-5.0); MAGNESIUM 1.9 mg/dL (1.80-2.40); TOTAL PROTEIN, SERUM 7.7 g/dL (6.0-8.3)
[2022-09-22] MEDS ORDERED: ALBUTEROL 0.083% 2.5 MG/3 ML INH IH ONE (19:43)
[2022-09-22] MEDS ORDERED: IPRATROPIUM 0.5 MG/2.5 ML INH IH ONE (19:43)
[2022-09-22 20:11] LABS: ABG BASE EXCESS 2.7 mmol/L (-2.0-3.0); ABG HCO3 28.1 mmol/L (21.0-28.0); ABG OXYGEN SATURATION 51.5 % (95.0-99.0); ABG PCO2 46 mmHg (35-48)
[2022-09-22 20:24] LABS: ABG BASE EXCESS 1.1 mmol/L (-2.0-3.0); ABG HCO3 24.2 mmol/L (21.0-28.0); ABG OXYGEN SATURATION 98.7 % (95.0-99.0); ABG PCO2 34 mmHg (35-48)
[2022-09-22] MEDS ORDERED: 0.9%NACL 1000ML 1,000 ML IV ONE (20:30)
[2022-09-22] MEDS ORDERED: SODIUM CHLORIDE 3% FOR INHALATION 4 ML/AMP VIAL.NEB IH ONE (22:33)
[2022-09-22 22:51] LABS: APPEARANCE,URINE CLEAR (CLEAR); BILIRUBIN,URINE NEGATIVE (NEGATIVE); COLOR,URINE YELLOW (YELLOW); GLUCOSE, URINE (UA) NEGATIVE (NEGATIVE); KETONES,URINE NEGATIVE (NEGATIVE); LEUKOCYTE ESTERASE ,URINE 75 Leu/uL (NEGATIVE); NITRATE,URINE NEGATIVE (NEGATIVE); OCCULT BLOOD,URINE NEGATIVE (NEGATIVE); PH,URINE 5.5 (5.0-8.0); PROTEIN,URINE 10 mg/dL (NEGATIVE); UROBILINOGEN,URINE 0.2 mg/dL (0.2-1.0)
[2022-09-22 22:57] LABS: MUCUS,URINE FEW LPF (None Seen)
[2022-09-23] MEDS ORDERED: IOHEXOL 350 MG/ML 100ML INFUS..BTL IV ONE (01:01)
[2022-09-23 02:20] LABS: ABG BASE EXCESS -0.4 mmol/L (-2.0-3.0); ABG OXYGEN SATURATION 91.4 % (95.0-99.0); ABG PCO2 38 mmHg (35-48)
[2022-09-23] MEDS ORDERED: ACETAMINOPHEN 325 MG TAB PO PRN ×2 (04:00)
[2022-09-23] MEDS ORDERED: MORPHINE 2 MG SYG IV PRN (04:00)
[2022-09-23] MEDS ORDERED: ONDANSETRON 4MG INJ IV PRN (04:00)
[2022-09-23] MEDS: 0.9%NACL 1000ML 1,000 ML IV SCH (04:24)
[2022-09-23 08:33] LABS: BASOPHILS % (AUTO) 0.5 % (0.0-5.0); EOSINOPHILS % (AUTO) 1.4 % (0.0-8.0); HEMATOCRIT 33.9 % (42-54); LYMPHOCYTES % (AUTO) 11.5 % (21.0-51.0); MEAN CORPUSCULAR HEMOGLOBIN 27.3 pg (27.0-33.0); MEAN CORPUSCULAR VOLUME 88.3 fL (79-99); MONOCYTES % (AUTO) 7.7 % (3.0-13.0); NEUTROPHILS % (AUTO) 78.2 % (40.0-77.0); PLATELET COUNT (AUTO) 304 K/uL (130-400); RED BLOOD CELL COUNT(AUTO) 3.84 MIL/uL (4.50-6.20); RED CELL DISTRIBUTION WIDTH 15.3 % (11.0-15.5); WHITE BLOOD COUNT (AUTO) 10.5 K/uL (4.8-10.8)
[2022-09-23] MEDS ORDERED: ALPRAZOLAM 0.25 MG TABLET PO PRN (09:00)
[2022-09-23] MEDS ORDERED: ALPRAZOLAM 0.25 MG TABLET PO SCH (09:00)
[2022-09-23] MEDS ORDERED: CEFTRIAXONE 1G VIAL IVP SCH ×3 (09:00→14:00)
[2022-09-23] MEDS: FLUTICASONE/VILANTEROL 1 EACH AER.POW.BA IH SCH (09:00)
[2022-09-23] MEDS: IPRATROPIUM/ALBUTEROL SULFATE 3 ML SOLUTION IH SCH ×3 (09:00→18:00)
[2022-09-23] MEDS ORDERED: IPRATROPIUM 0.5 MG/2.5 ML INH IH ONE ×3 (09:14→22:26)
[2022-09-23] MEDS ORDERED: ALBUTEROL 0.083% 2.5 MG/3 ML INH IH ONE ×3 (09:14→22:26)
[2022-09-23 09:17] LABS: CRP QUANTITATIVE 112.2 mg/L (0.00-9.0)
[2022-09-23] MEDS: FAMOTIDINE 20MG VIAL IV SCH ×2 (09:28→21:07)
[2022-09-23] MEDS: SOLU-MEDROL 40MG VIAL IVP SCH ×3 (09:28→23:31)
[2022-09-23] MEDS: ENOXAPARIN SODIUM 30 MG/0.3 ML SQ SCH (09:28)
[2022-09-23] MEDS: AZITHROMYCIN 500MG+NS 250ML IVPB SCH (09:29)
[2022-09-23 15:30] VITALS: BP 148/75
[2022-09-23 19:00] VITALS: BP 125/64
[2022-09-23 23:53] VITALS: BP 124/63
[2022-09-24 03:33] VITALS: BP 132/74
[2022-09-24] MEDS: 0.9%NACL 1000ML 1,000 ML IV SCH (04:07)
[2022-09-24 05:09] LABS: BASOPHILS % (AUTO) 0.3 % (0.0-5.0); LYMPHOCYTES % (AUTO) 9.1 % (21.0-51.0); MEAN CORPUSCULAR HEMOGLOBIN 27.2 pg (27.0-33.0); MEAN CORPUSCULAR HGB CONC 31.5 g/dL (32.0-36.0); MEAN CORPUSCULAR VOLUME 86.5 fL (79-99); MONOCYTES % (AUTO) 0.5 % (3.0-13.0); NEUTROPHILS % (AUTO) 89.6 % (40.0-77.0); PLATELET COUNT (AUTO) 339 K/uL (130-400); RED BLOOD CELL COUNT(AUTO) 3.93 MIL/uL (4.50-6.20); RED CELL DISTRIBUTION WIDTH 14.6 % (11.0-15.5); WHITE BLOOD COUNT (AUTO) 3.7 K/uL (4.8-10.8)
[2022-09-24 05:21] LABS: ALBUMIN 2.8 g/dL (3.5-5.0); MAGNESIUM 1.9 mg/dL (1.80-2.40); POTASSIUM 4.3 mmol/L (3.5-5.1); TOTAL PROTEIN, SERUM 6.4 g/dL (6.0-8.3)
[2022-09-24] MEDS: AZITHROMYCIN 500MG+NS 250ML IVPB SCH (06:21)
[2022-09-24] MEDS: IPRATROPIUM 0.5 MG/2.5 ML INH IH SCH ×2 (06:30→11:13)
[2022-09-24] MEDS: ALBUTEROL 0.083% 2.5 MG/3 ML INH IH SCH ×2 (06:30→11:14)
[2022-09-24] MEDS: SOLU-MEDROL 40MG VIAL IVP SCH (06:32)
[2022-09-24 08:00] VITALS: BP 118/61
[2022-09-24] MEDS: FLUTICASONE/VILANTEROL 1 EACH AER.POW.BA IH SCH (09:00)
[2022-09-24] MEDS: FAMOTIDINE 20MG VIAL IV SCH (09:05)
[2022-09-24] MEDS: ENOXAPARIN SODIUM 30 MG/0.3 ML SQ SCH (09:06)
[2022-09-24] MEDS ORDERED: TAMSULOSIN HCL 0.4 MG CAP.ER.24H PO SCH (12:00)
[2022-09-24] MEDS ORDERED: PREDNISONE 20 MG TABLET PO SCH (12:00)
[2022-09-24] MEDS ORDERED: DOXY100T21 PO (12:39)
[2022-09-24] MEDS ORDERED: PRED50TA2 PO (12:39)
[2022-09-25] MEDS ORDERED: LEVO-70 PO (12:37)
== END 2022-09-24 13:25 | disposition home or self-care (01) | DRG 177 ==
LOC: EDH 17:39 → EDHIP 09-23 03:35 → 4BH 09-23 10:00
PROVIDERS: ADMIT Hospitalist; ATTEND Hospitalist
DX: J15.1 Pneumonia due to Pseudomonas (principal); J96.01 Acute respiratory failure with hypoxia; J44.0 Chronic obstructive pulmonary disease with (acute) lower respiratory infection; N17.9 Acute kidney failure, unspecified; J44.1 Chronic obstructive pulmonary disease with (acute) exacerbation; J15.0 Pneumonia due to Klebsiella pneumoniae; Z20.822 Contact with and (suspected) exposure to COVID-19; F41.9 Anxiety disorder, unspecified; E86.0 Dehydration; J84.10 Pulmonary fibrosis, unspecified; Z87.891 Personal history of nicotine dependence; Z86.16 Personal history of COVID-19
CPT/HCPCS: 36415; 36600; 71045; 71270; 80053; 81001; 82435; 82550; 82803; 82947; 83605; 83735; 83874; 83880; 84132; 84145; 84295; 84484; 85018; 85025; 85378; 85610; 85651; 85730; 86140; 87040; 87071; 87077; 87088; 87186; 87205; 87420; 87635; 87804; 93005; 94640; 94664; 97039; C9803; G0378; J0456; J0696; J1650; J2920; J3490; Q9967

== ENCOUNTER 2022-11-21 13:11 | Emergency (ER) | payer MEDICARE ==
[~2022-11-21] VITALS: Ht 172.7 cm; Wt 65.8 kg
[~2022-11-21 13:11] MED LIST changes: +DOXY100T21 PO; +LEVO-70 PO; +PRED50TA2 PO
[2022-11-21 15:30] LABS: BASOPHILS % (AUTO) 0.3 % (0.0-5.0); EOSINOPHILS % (AUTO) 0.1 % (0.0-8.0); LYMPHOCYTES % (AUTO) 5.6 % (21.0-51.0); MEAN CORPUSCULAR HEMOGLOBIN 27.3 pg (27.0-33.0); MEAN CORPUSCULAR VOLUME 87.9 fL (79-99); MONOCYTES % (AUTO) 0.7 % (3.0-13.0); NEUTROPHILS % (AUTO) 92.9 % (40.0-77.0); PLATELET COUNT (AUTO) 390 K/uL (130-400); RED BLOOD CELL COUNT(AUTO) 4.55 MIL/uL (4.50-6.20); RED CELL DISTRIBUTION WIDTH 14.5 % (11.0-15.5); WHITE BLOOD COUNT (AUTO) 11.1 K/uL (4.8-10.8)
[2022-11-21 15:35] LABS: APPEARANCE,URINE CLEAR (CLEAR); BILIRUBIN,URINE NEGATIVE (NEGATIVE); COLOR,URINE LIGHT-YELLOW (YELLOW); GLUCOSE, URINE (UA) NEGATIVE (NEGATIVE); KETONES,URINE NEGATIVE (NEGATIVE); LEUKOCYTE ESTERASE ,URINE 25 Leu/uL (NEGATIVE); NITRATE,URINE NEGATIVE (NEGATIVE); OCCULT BLOOD,URINE NEGATIVE (NEGATIVE); PH,URINE 6.5 (5.0-8.0); PROTEIN,URINE NEGATIVE (NEGATIVE); UROBILINOGEN,URINE 0.2 mg/dL (0.2-1.0)
[2022-11-21 15:36] LABS: CREATININE 1.1 mg/dL (0.5-1.5); POTASSIUM 4.1 mmol/L (3.5-5.1)
[2022-11-21 15:40] LABS: MUCUS,URINE RARE LPF (None Seen); RBC,URINE 0-1 /HPF (0-1); SQUAMOUS EPITHELIAL CELL,UR RARE /HPF (0-2)
[2022-11-21 15:45] LABS: ALBUMIN 3.9 g/dL (3.5-5.0); TOTAL PROTEIN, SERUM 7.7 g/dL (6.0-8.3)
[2022-11-21] MEDS ORDERED: HYDR25CA PO (16:21)
[2022-11-21 16:34] VITALS: BP 135/79
== END 2022-11-21 16:34 | disposition home or self-care (01) ==
LOC: EDH 13:11
DX: F41.9 Anxiety disorder, unspecified (principal); F41.0 Panic disorder [episodic paroxysmal anxiety]; J44.9 Chronic obstructive pulmonary disease, unspecified; Z79.51 Long term (current) use of inhaled steroids; Z79.52 Long term (current) use of systemic steroids; Z86.16 Personal history of COVID-19; Z90.49 Acquired absence of other specified parts of digestive tract
CPT/HCPCS: 36415; 71045; 80053; 81001; 84484; 85025; 93005